=== PATIENT | male | born 1995 | race Caucasian/White ===

== ENCOUNTER 2020-10-16 12:41 | Emergency (ER) | payer BC, OTHER ==
[2020-10-16] MEDS ORDERED: LORazepam 2 MG/ML SDV VIAL IM ONE (13:29)
[2020-10-16] MEDS ORDERED: LORazepam 2 MG/ML SDV VIAL ONE (13:49)
[2020-10-16 14:26] VITALS: TEMP 99.9
[2020-10-16] MEDS ORDERED: KETAMINE HCL 200 MG/20 ML VIAL IM ONE ×3 (17:29→17:48)
[2020-10-16 17:32] VITALS: BMI 28.5
[2020-10-16] MEDS ORDERED: MIDAZOLAM HCL 2 MG/2 ML SINGLE DOSE VIAL IM ONE (17:34)
[2020-10-16] MEDS ORDERED: MIDAZOLAM HCL 2 MG/2 ML SINGLE DOSE VIAL ONE (17:44)
[2020-10-16] MEDS ORDERED: KETAMINE HCL 500 MG/10 ML VIAL ONE (17:45)
[2020-10-16] MEDS ORDERED: MIDAZOLAM HCL 2 MG/2 ML SINGLE DOSE VIAL IVPUSH ONE (17:49)
[2020-10-16 19:25] LABS: BASO % 0.6 % (0-2.0); EOS % 0.1 % (0-4.5); HEMATOCRIT 47.6 % (35.4-49); HEMOGLOBIN 16.5 GM/dl (11.7-16.9); LYMPH % 17.2 % (8-40); MCH 29.3 pg (25.7-33.7); MCHC 34.7 g/dl (32.0-35.9); MEAN CELL VOLUME 84.5 fl (80-96); MEAN PLT VOLUME 8.1 fl (7.5-11.1); NEUT % 76.1 % (42.8-82.8); PLATELET COUNT 228 K/MM3 (134-434); RBC 5.63 M/mm3 (4.00-5.60); WHITE BLOOD COUNT 11.7 K/mm3 (4.0-10.8)
[2020-10-16 19:43] LABS: ALBUMIN 4.5 g/dl (3.4-5.0); CALCIUM 9.4 mg/dl (8.5-10); CREATININE 0.7 mg/dl (0.55-1.3); POTASSIUM 3.4 mmol/L (3.5-5.1)
[2020-10-16] MEDS ORDERED: AMOX TR/POT CLAV 875MG/125MG TABLETS (FP) PO ONE (19:51)
[2020-10-16] MEDS ORDERED: morphine SULFATE 4 MG/ML VIAL ONE (19:58)
[2020-10-16] MEDS ORDERED: AMOX TR/POT CLAV 875MG/125MG TABLETS (FP) ONE (20:12)
[2020-10-16] MEDS ORDERED: ONDANSETRON 4 MG TABLET PO ONE (21:39)
[2020-10-16] MEDS ORDERED: ONDANSETRON *ODT* 4 MG TABLET ONE (21:39)
[2020-10-16 22:52] VITALS: BP 109/72; PULSE 95
== END 2020-10-16 22:17 | disposition home or self-care (01) ==
LOC: FER 12:41
PROC: 3E023GC Introduction of Other Therapeutic Substance into Muscle, Percutaneous Approach (ICD-10-PCS; principal; 2020-10-16)
PROC: 3E023NZ Introduction of Analgesics, Hypnotics, Sedatives into Muscle, Percutaneous Approach (ICD-10-PCS; 2020-10-16)
PROC: 3E033GC Introduction of Other Therapeutic Substance into Peripheral Vein, Percutaneous Approach (ICD-10-PCS; 2020-10-16)
DX: H61.121 Hematoma of pinna, right ear (principal); H61.122 Hematoma of pinna, left ear; S09.90XA Unspecified injury of head, initial encounter; S01.01XA Laceration without foreign body of scalp, initial encounter; Z91.5 Personal history of self-harm
CPT/HCPCS: 36415; 70450-TC; 70486-TC; 71045-TC-FY; 72125-TC; 80053; 85025; 99285-25

== ENCOUNTER 2022-02-07 09:04 | Emergency (ER) | payer BC, OTHER ==
[2022-02-07 09:39] VITALS: BP 126/84; PULSE 77; TEMP 98; BMI 29.5
== END 2022-02-07 09:44 | disposition home or self-care (01) ==
LOC: FER 09:04
DX: S09.90XA Unspecified injury of head, initial encounter (principal); S00.01XA Abrasion of scalp, initial encounter; W22.09XA Striking against other stationary object, initial encounter
CPT/HCPCS: 99281-25

== ENCOUNTER 2023-01-12 16:15 | Emergency (ER) | payer BC, OTHER ==
[2023-01-12 16:41] VITALS: RESP 18; BMI 26.4
[2023-01-12] MEDS ORDERED: ONDANSETRON *ODT* 4 MG TABLET SL ONE (18:25)
[2023-01-12] MEDS ORDERED: AZITHROMYCIN 250 MG TABLET PO ONE (18:25)
[2023-01-12] MEDS ORDERED: AZITHROMYCIN 500 MG TABLET ONE (18:27)
[2023-01-12] MEDS ORDERED: ONDANSETRON *ODT* 4 MG TABLET ONE (18:27)
[2023-01-12 18:40] VITALS: BP 120/70; PULSE 82; TEMP 98.4
== END 2023-01-12 19:03 | disposition home or self-care (01) ==
LOC: FER 16:15
DX: J02.0 Streptococcal pharyngitis (principal)
CPT/HCPCS: 71046-TC-FY; 99283-25; Q0162

== ENCOUNTER 2023-06-21 15:34 | Emergency (ER) | payer BC, OTHER ==
[2023-06-21 16:00] VITALS: BP 113/62; PULSE 87; RESP 18; TEMP 98.9; BMI 26.4
== END 2023-06-21 16:02 | disposition home or self-care (01) ==
LOC: FER 15:34 → SUPCPDRO 15:34 → FER 16:02
DX: S00.431A Contusion of right ear, initial encounter (principal); X83.8XXA Intentional self-harm by other specified means, initial encounter; Y92.9 Unspecified place or not applicable
CPT/HCPCS: 99282-25

== ENCOUNTER 2023-07-12 10:37 | Emergency (ER) | payer BC, OTHER ==
[2023-07-12 10:48] VITALS: BP 120/70; BMI 26.6
[2023-07-12] MEDS ORDERED: ACETAMINOPHEN 325 MG TABLET (FP) PO ONE (10:58)
[2023-07-12] MEDS ORDERED: ACETAMINOPHEN 325 MG TABLET (FP) ONE (10:59)
== END 2023-07-12 11:30 | disposition home or self-care (01) ==
LOC: FER 10:37
DX: S00.83XA Contusion of other part of head, initial encounter (principal); X58.XXXA Exposure to other specified factors, initial encounter; Y92.038 Other place in apartment as the place of occurrence of the external cause
CPT/HCPCS: 99283-25